=== PATIENT | female | born 1980 | race Caucasian/White ===

== ENCOUNTER → 2016-05-26 | Outpatient (CLI) | payer BC, OTHER ==
[~2016-05-26] MED LIST: PRENTAB26 PO
== END | disposition home or self-care (01) ==
LOC: C.LABSPEC 12:04
PROVIDERS: ATTEND Obstetrics & Gynecology
DX: Z34.83 Encounter for supervision of other normal pregnancy, third trimester (principal)

== ENCOUNTER 2016-06-15 18:24 | Inpatient (IN) | payer BC ==
[~2016-06-15] VITALS: Ht 172.7 cm; Wt 80.5 kg
[2016-06-15] MEDS ORDERED: LACTATED RINGER'S 1000ML 1,000 ML IV PRN (18:45)
[2016-06-15] MEDS ORDERED: LACTATED RINGER'S 1000ML 1,000 ML IV SCH (18:45)
[2016-06-15] MEDS ORDERED: FENTANYL 2MCG/ML ROPIV 1.25MG/ML 100ML BAG EPI ONE (19:03)
[2016-06-15] MEDS ORDERED: EpHEDrine SULFATE INJ 50 MG/ML AMP ONE (19:03)
[2016-06-15] MEDS ORDERED: BUPIVACAINE 0.25% 30 ML VIAL ONE (19:03)
[2016-06-15] MEDS ORDERED: FENTANYL CITRATE INJ 50 MCG/1 ML 2 ML VIAL ONE (19:04)
[2016-06-15 19:21] LABS: HEMATOCRIT 35.1 % (37-47); MEAN CELL VOLUME 85.8 fL (80-100); MEAN CORPUSCULAR HEMOGLOBIN 29.6 pg (25-34); MEAN CORPUSCULAR HGB CONC 34.5 g/dl (32-36); MEAN PLATELET VOLUME 9.8 fL (7.4-10.4); PLATELET COUNT 212 K/uL (130-400); RED BLOOD COUNT 4.09 M/uL (4.2-5.4); WHITE BLOOD COUNT 8.28 K/uL (4.8-10.8)
[2016-06-15] MEDS ORDERED: PRENTAB26 PO (19:30)
[2016-06-15 19:31] VITALS: Ht 172.7 cm; Wt 80.5 kg
[2016-06-15] MEDS ORDERED: OXYTOCIN 30 UNITS/500ML NSS IV ONE (19:44)
[2016-06-15] MEDS ORDERED: OXYTOCIN 30 UNITS/500ML NSS IV PRN (20:15)
[2016-06-15] MEDS ORDERED: SUPERCREAM 0.870 % 15GM JAR EXT PRN (20:15)
[2016-06-15] MEDS ORDERED: ACETAMINOPHEN/CODEINE 300/30MG TAB PO PRN ×2 (20:15)
[2016-06-15] MEDS ORDERED: ACETAMINOPHEN 325 MG TAB PO PRN (20:15)
[2016-06-15] MEDS ORDERED: LANOLIN OINT EXT PRN ×2 (20:15)
[2016-06-15] MEDS ORDERED: BENZOCAINE 20% AER SPR 82.5 GM CAN EXT PRN (20:15)
[2016-06-15] MEDS: IBUPROFEN 600 MG TAB PO PRN (20:39)
[2016-06-16 00:20] VITALS: BP 116/75; PULSE 90; TEMP 36.8
--- NOTE | 2016-06-16 01:17 | DELIVERY SUMMARY ---
DATE OF OPERATION: 06/15/2016 The patient is a 35-year-old 2, para 1-0-0-1 white female EDC of 06/22/2016, who presented in active labor following ruptured membranes. She was 4 cm upon arrival to labor and delivery and rapidly went to full dilation and delivered a viable female over intact perineum over 1 contraction. Mouth and nasopharynx were suctioned on the perineum. The rest of the infant delivered with ease and was placed on the mother's abdomen. There was vigorous crying and the was moving all 4 limbs. The cord was clamped and cut. Cord blood was obtained and the placenta was expressed intact with a 3-vessel cord. A second degree perineal laceration was repaired using 3-0 chromic in the usual fashion. 1% lidocaine was used to anesthetize the area prior to doing the repair. Estimated blood loss was 300 mL. Mother and doing well after delivery. I attest to the content of the Intraoperative Record and any orders documented therein. Any exceptio ns are noted below.
[2016-06-16] MEDS: IBUPROFEN 600 MG TAB PO PRN ×3 (02:34→16:21)
[2016-06-16 03:35] VITALS: BP 121/68; PULSE 88; TEMP 37
--- NOTE | 2016-06-16 07:09 | Progress Note ---
Subjective Jun 16, 2016. Subjective conversation w/ patient, physical exam Ambulation: ambulating normally Voiding: no voiding problems Passing Gas: No Diet Tolerance: Regular Diet Lochia: Moderate Feeding Type: Breast Feeding Pain: No pain reported this morning Review of Systems Constitutional: No chills, No fever Respiratory: No cough, No shortness of breath Cardiac: No chest pain Breast: No breast pain Abdomen: No nausea, No pain, No vomiting Female : No dysuria Objective Vital Signs Date Time Temp Pulse Resp B/P Pulse Ox O2 Delivery O2 Flow Rate FiO2 06/16/16 03:35 37.0 88 20 121/68 Room Air 06/16/16 00:20 Room Air 06/16/16 00:20 36.8 90 20 116/75 Room Air Physical Exam General Appearance: WELL-APPEARING, WD/WN, NO APPARENT DISTRESS Respiratory/Chest: lungs clear, normal breath sounds Cardiovascular: regular rate, rhythm, no gallop, no murmur Abdomen: non tender, soft Fundus: Firm, Relation to Umbilicus (2cm below umbilicus) Extremities: no calf tenderness Laboratory Results Last 24 Hours Test 06/15/16 19:12 06/16/16 04:44 White Blood Count 8.28 K/uL Red Blood Count 4.09 M/uL Hemoglobin 12.1 g/dL Hematocrit 35.1 % Mean Corpuscular Volume 85.8 fL Mean Corpuscular Hemoglobin 29.6 pg Mean Corpuscular Hemoglobin Concent 34.5 g/dl RDW Standard Deviation 43.9 fL RDW Coefficient of Variation 14.1 % Platelet Count 212 K/uL Mean Platelet Volume 9.8 fL Medications Current Inpatient Medications Medications (Trade) Dose Ordered Sig/Tommy Route Start Time Stop Time Status Last Admin Dose Admin Lactated Ringer's 1,000 ml @ 125 mls/hr Q8H IV 06/15/16 18:45 06/17/16 18:44 Lactated Ringer's (Lr 1000ml) 1,000 ml @ 999 mls/hr Q1H1M PRN IV 06/15/16 18:45 07/15/16 18:44 06/15/16 19:00 999 MLS/HR Oxytocin (Pitocin IV) 30 units UD PRN IV 06/15/16 20:15 07/15/16 20:14 Benzocaine (Dermoplast Aero Spr) 1 appln PRN PRN EXT 06/15/16 20:15 07/15/16 20:14 Cocaine HCl (Supercream 0.870% Cr) BID PRN EXT 06/15/16 20:15 06/29/16 20:14 Lanolin (Lanolin Oint) PRN PRN EXT 06/15/16 20:15 07/15/16 20:14 Prenat Multivit/ Internet Sales Manager/Iron/Folic Ac ( Vitamin Tab) 1 tab DAILY PO 06/16/16 08:00 07/16/16 07:59 Ibuprofen (Motrin Tab) 600 mg Q4H PRN PO 06/15/16 20:15 07/15/16 20:14 06/16/16 02:34 600 MG Acetaminophen (Tylenol Tab) 650 mg Q6H PRN PO 06/15/16 20:15 07/15/16 20:14 Acetaminophen/ Codeine Phosphate (Tylenol w/ Codeine #3 Tab) 1 tab Q4H PRN PO 06/15/16 20:15 07/15/16 20:14 Acetaminophen/ Codeine Phosphate (Tylenol w/ Codeine #3 Tab) 2 tab Q4H PRN PO 06/15/16 20:15 07/15/16 20:14 Bisacodyl (Dulcolax Tab) 5 mg 20 PO 06/16/16 20:00 06/16/16 20:01 Docusate Sodium (coLACE CAP) 100 mg BID PO 06/16/16 08:00 07/16/16 07:59 Assessment and Plan Post- Day#: 1 Continue Routine Care: Resident Physician Supervision Note: I interviewed and examined the patient. Discussed with Dr. Harrison and agree with findings and plan as documented in the note. Any exceptions or clarifications are listed here: [None] Documented By: Kayla Barney - Vital Signs reviewed and WNL (temp max 37.0) - Blood Type: A+, GBS Negative, Rubella Immune - Encourage Ambulation today - Tolerating PO Diet - Pain well controlled this morning
[2016-06-16 07:40] VITALS: BP 118/79; PULSE 76; TEMP 36.5; O2SAT 96
[2016-06-16 08:00] LABS: HEMATOCRIT 34.1 % (37-47)
[2016-06-16] MEDS: PRENATAL VITAMIN TAB PO SCH (08:24)
[2016-06-16] MEDS: DOCUSATE SODIUM 100 MG CAP PO SCH ×2 (08:24→19:51)
[2016-06-16 12:01] VITALS: BP 113/73; PULSE 80; TEMP 36.6; O2SAT 96
[2016-06-16 16:15] VITALS: BP 111/76; PULSE 96; TEMP 36.5; O2SAT 98
[2016-06-16 20:00] VITALS: BP 111/70; PULSE 90; TEMP 36.5; O2SAT 97
[2016-06-16] MEDS ORDERED: BISACODYL 5 MG TABEC PO SCH (20:00)
[2016-06-17] VITALS: BP 107/63; PULSE 83; TEMP 36.8
[2016-06-17] MEDS: IBUPROFEN 600 MG TAB PO PRN (04:44)
--- NOTE | 2016-06-17 07:02 | Progress Note ---
Subjective Jun 17, 2016. Subjective conversation w/ patient, physical exam Ambulation: ambulating normally Voiding: no voiding problems Passing Gas: No Diet Tolerance: Regular Diet Lochia: Moderate Feeding Type: Breast Feeding Pain: No pain reported this morning Review of Systems Constitutional: No chills, No fever Respiratory: No cough, No shortness of breath Cardiac: No chest pain Breast: No breast pain Abdomen: No nausea, No pain, No vomiting Female : No dysuria Objective Vital Signs Date Time Temp Pulse Resp B/P Pulse Ox O2 Delivery O2 Flow Rate FiO2 06/17/16 00:00 36.8 83 16 107/63 Room Air 06/17/16 00:00 Room Air 06/16/16 20:00 36.5 90 18 111/70 97 Room Air 06/16/16 16:15 36.5 96 16 111/76 98 Room Air 06/16/16 16:15 98 Room Air 06/16/16 12:01 36.6 80 16 113/73 96 Room Air 06/16/16 07:40 Room Air 06/16/16 07:40 36.5 76 16 118/79 96 Room Air Physical Exam General Appearance: WELL-APPEARING, WD/WN, NO APPARENT DISTRESS Respiratory/Chest: lungs clear, normal breath sounds Cardiovascular: regular rate, rhythm, no gallop, no murmur Abdomen: non tender, soft Fundus: Firm, Relation to Umbilicus (1cm below umbilicus) Extremities: no calf tenderness Laboratory Results Last 24 Hours Test 06/16/16 07:35 Hemoglobin 11.8 g/dL Hematocrit 34.1 % Medications Current Inpatient Medications Medications (Trade) Dose Ordered Sig/Tommy Route Start Time Stop Time Status Last Admin Dose Admin Lactated Ringer's 1,000 ml @ 125 mls/hr Q8H IV 06/15/16 18:45 06/17/16 18:44 Lactated Ringer's (Lr 1000ml) 1,000 ml @ 999 mls/hr Q1H1M PRN IV 06/15/16 18:45 07/15/16 18:44 06/15/16 19:00 999 MLS/HR Oxytocin (Pitocin IV) 30 units UD PRN IV 06/15/16 20:15 07/15/16 20:14 Benzocaine (Dermoplast Aero Spr) 1 appln PRN PRN EXT 06/15/16 20:15 07/15/16 20:14 Cocaine HCl (Supercream 0.870% Cr) BID PRN EXT 06/15/16 20:15 06/29/16 20:14 Lanolin (Lanolin Oint) PRN PRN EXT 06/15/16 20:15 07/15/16 20:14 Prenat Multivit/ Health Practice Manager/Iron/Folic Ac ( Vitamin Tab) 1 tab DAILY PO 06/16/16 08:00 07/16/16 07:59 06/16/16 08:24 1 TAB Ibuprofen (Motrin Tab) 600 mg Q4H PRN PO 06/15/16 20:15 07/15/16 20:14 06/17/16 04:44 600 MG Acetaminophen (Tylenol Tab) 650 mg Q6H PRN PO 06/15/16 20:15 07/15/16 20:14 Acetaminophen/ Codeine Phosphate (Tylenol w/ Codeine #3 Tab) 1 tab Q4H PRN PO 06/15/16 20:15 07/15/16 20:14 Acetaminophen/ Codeine Phosphate (Tylenol w/ Codeine #3 Tab) 2 tab Q4H PRN PO 06/15/16 20:15 07/15/16 20:14 Docusate Sodium (coLACE CAP) 100 mg BID PO 06/16/16 08:00 07/16/16 07:59 06/16/16 19:51 100 MG Assessment and Plan Post- Day#: 2 Continue Routine Care: -Vital Signs reviewed and WNL (temp max 36.8) - Blood Type: A+, GBS Negative, Rubella Immune - Encourage Ambulation today - Tolerating PO Diet - Pain well controlled - Discharge today Resident Physician Supervision Note: I interviewed and examined the patient. Discussed with Dr. Harrison and agree with findings and plan as documented in the note. Any exceptions or clarifications are listed here: [None] Documented By: Dakota Reyna
--- NOTE | 2016-06-17 07:11 | Discharge Instructions ---
Discharge Instructions Admission Reason for Admission: R/O Rupture Discharge Discharge Diagnosis / Problem: Vaginal Delivery Discharge Goals Goal(s): Routine recovery after delivery Medications Continue Dispensed Medications: supercream, dermaplast, tucks, lansinoh Activity Recommendations Activity Limitations: per Instructions/Follow-up section . Instructions / Follow-Up Instructions / Follow-Up ACTIVITY RECOMMENDATIONS: * Gradual return to full activity over the next 2-3 weeks. * No lifting - nothing heavier than baby over the next 2-3 weeks. * Do not engage in vigorous exercise, sexual activity or sports until cleared by your physician. * Do not drive or operate any motorized equipment until cleared by your physician. * You may shower/bathe daily. MEDICATIONS: For discomfort or pain, you may use Acetaminophen (Tylenol), Ibuprofen (Advil), or Naproxen (Aleve) following the package directions. For constipation you may use Colace following the package directions. BREAST CARE: If you are not breast feeding: * Wear a supportive bra 24 hours a day for one to two weeks. * Avoid stimulating your breasts and nipples as much as possible during the first few weeks after delivery. * When taking a shower, have the warm water hit your back, not breasts. * When your breasts feel full, apply ice packs. Usually three to four times a day helps ease the discomfort. * Take a mild pain medication (Tylenol / Motrin) when you are uncomfortable. If breast feeding: * Use breast milk to lubricate nipples. Lansinoh cream may be used for sore nipples. You do not need to remove cream prior to breast feeding. If using a different brand of cream, check the label for directions regarding removal of cream prior to nursing. * Wear a supportive bra. * If having problems with breasts or breast feeding, call a inside sales consultant or your health care provider. EPISIOTOMY CARE: After delivery, if you have an episiotomy (stitches), the following steps will ease discomfort and aid healing. * For the first 24 hours after delivery, place ice packs next to your episiotomy to help reduce swelling. * After the first 24 hour-period, sitz baths, either portable or in the tub, are suggested. A shower with a shower arm sprayed over the episiotomy may be comforting. * Dottie care should be done after each voiding and bowel movement. Squirt warm water from a plastic bottle over the perineum (region of the body between the anus and urinary opening) and pat dry. * Use Dermoplast to ease discomfort. Shake container. Ryde directly over the episiotomy. Place a Tucks on a clean sanitary pad next to your episiotomy. SPECIAL CARE INSTRUCTIONS: When you are discharged from the hospital, it is important for you to follow the instructions listed below: * During the first week at home, you should be able to care for yourself and your baby. In addition, the usual light household activities are encouraged. * Limit your activities to the way you feel. Do not try to clean the house or move furniture. Be sensible. * If you actively engage in sports and have done so up until the time of your delivery, you may resume these activities as soon as you feel able. This may take up to one month or even longer. Use good judgment. * Continue to take your vitamins for at least six weeks after the of your baby. * Your diet need not be limited unless you were on a special diet before your delivery. Breast-feeding mothers need around 2500 calories per day and at least 64-80 ounces of fluid per day (8 to 10 glasses). * You should eat foods from the four major food groups. Crash diets or fad diets are to be avoided. Eating lean meats, fresh fruits and vegetables, low-fat dairy products, high fiber foods and a regular exercise program, will help you get back to your pre- weight without putting your health at risk. * Constipation is sometimes a problem after delivery. Take a mild laxative as needed. If breast feeding, Milk of Magnesia is acceptable to use. You may use a suppository or Fleets enema if no episiotomy. * A daily shower or tub bath is suggested. Be sure to thoroughly and gently dry the perineum. * A bloody vaginal discharge will usually continue until around four weeks post . A small amount of bleeding may continue for as long as six weeks. Vaginal discharge changes from the bright red bleeding after delivery to pink then brownish and finally yellowish-pink before becoming white and disappearing. * Bleeding may increase with activity. Your first period may come in 4-8 weeks. If you are breast feeding, your period may be delayed even longer. * [place] (sex) can begin whenever both you and your partner feel comfortable and do not have any form of genital infection. It is recommended that you wait at least six weeks for internal and external healing to occur. If you have questions, please talk to your health care practitioner. A condom should be used to prevent infection and . * Foreplay, gentle intercourse and lubrication is very important the first several times to prevent pain. A water-based lubricant such as K-Y jelly or Astroglide may be used. * If you have RH negative blood and your baby is RH positive, you will receive RHOGAM by injection prior to discharge. The nurse will give you a card to keep with you that has the date and place that you received RHOGAM after delivery. * During your care, you had a Rubella screen done to check for the presence of rubella antibodies in your blood. If your test was negative, you will receive a Rubella vaccine prior to discharge. This vaccine may cause a fever, soreness at the injection site and flu-like symptoms. If these symptoms persist, notify your health care practitioner. is not advised for one month after a Rubella vaccine. * Verbalizes understanding of car seat law as reviewed with patient nursing. * Car Seat hand-out given and reviewed with patient by nursing. * Shaken baby information reviewed with patient by nursing. Call you doctor if: * Heavy bleeding (saturating several pads an hour) or passing clots the size of your fist. * A fever >101 degrees F (38.3 degrees C) on two occasions four hours apart and /or chills. * Unusual pain in the pelvic or vaginal areas. * "Baby Blues" lasting longer than two weeks. If you have any questions or concerns, call your health care practitioner at . FOLLOW UP VISIT: * Please call the office at to schedule a 6 week examination. It is important you keep this appointment. It is important for you to make arrangements for either yearly or twice yearly check-ups thereafter. Current Hospital Diet Patient's current hospital diet: Regular OB Diet Discharge Diet Recommended Diet: Regular Diet Pending Studies Studies pending at discharge: no Medical Emergencies . Who to Call and When: Medical Emergencies: If at any time you feel your situation is an emergency, please call 911 immediately. . Non-Emergent Contact Non-Emergency issues call your: [employer] . . "Provider Documentation" section prepared by Carlos Harrison. VTE Core Measure Inpt VTE Proph given/why not?: Treatment not indicated
[2016-06-17 08:15] VITALS: BP 113/76; PULSE 85; TEMP 36.6; O2SAT 97
[2016-06-17] MEDS: DOCUSATE SODIUM 100 MG CAP PO SCH (08:15)
[2016-06-17] MEDS: PRENATAL VITAMIN TAB PO SCH (08:15)
[2016-06-17 10:34] VITALS: BP_DIAS 76; PULSE 85; TEMP 36.6
== END 2016-06-17 11:25 | disposition home or self-care (01) | DRG 775 ==
LOC: C.LD 18:24 → C.OPB 18:24 → C.LD 18:45 → C.OBG 22:23
PROVIDERS: ADMIT Obstetrics & Gynecology; ATTEND Obstetrics & Gynecology
PROC: 0KQM0ZZ Repair Perineum Muscle, Open Approach (ICD-10-PCS; principal; 2016-06-15)
PROC: 10E0XZZ Delivery of Products of Conception, External Approach (ICD-10-PCS; principal; 2016-06-15)
DX: O70.1 Second degree perineal laceration during delivery (principal); Z37.0 Single live birth; Z3A.39 39 weeks gestation of pregnancy

== ENCOUNTER → 2016-08-06 | Outpatient (CLI) | payer BC | END | disposition home or self-care (01) | LOC: C.PAPS 14:45 | PROVIDERS: ATTEND Obstetrics & Gynecology | DX: Z12.4 Encounter for screening for malignant neoplasm of cervix (principal) ==

== ENCOUNTER → 2016-08-10 | Outpatient (CLI) | payer BC ==
--- NOTE | 2016-08-10 15:43 | MAMMOGRAPHY REPORT ---
UNILATERAL LEFT DIGITAL DIAGNOSTIC MAMMOGRAM TOMOSYNTHESIS WITH CAD AND TARGETED LEFT ULTRASOUND: 08/10/2016 CLINICAL HISTORY: 35 year-old woman who is approximately 6 weeks and currently lactating presents with a three-week history of a palpable lump in the upper inner quadrant of the left breast . She reports it has not significantly changed in size since she noticed it and may be slightly mor e prominent in the evenings when her breasts are less full of milk. No skin changes or bloody nippl e discharge. TECHNIQUE: Left breast tomosynthesis in addition to standard 2D mammography was performed. Current s tudy was also evaluated with a Computer Aided Detection (CAD) system. COMPARISON: No prior exams were available for comparison. BREAST COMPOSITION: The tissue of the left breast is extremely dense, which lowers the sensitivity of mammography. FINDINGS: A triangular skin palpable marker was placed in the upper inner approximate 10:00 axis of the left breast, in the area of palpable lump pointed out by the patient. There are diffuse lactati onal changes evident mammographically, without a suspicious mass, focal area of architectural distor tion or suspicious microcalcifications. Targeted ultrasound was performed in the area of palpable lump pointed out by the patient. On palpa tion, there is a rectangular or almost wedge-shaped firm mass, approximately 1 x 2 cm. On ultrasoun d in the 10:00 left breast, 8 cm from the nipple, in the area of palpable lump pointed out by the pa tient, there is a focal area of normal tissue with lactational changes evident. A few tubular hypoe choic milk ducts are seen coursing through this area. There are not definitely measurable borders t o determine this mass but this area appears discrete in real-time scanning. It has the appearance o f normal lactational changes. No suspicious hypoechoic solid or cystic mass is identified. IMPRESSION: ACR-BI-RADS CATEGORY 3: PROBABLY BENIGN, TARGETED ULTRASOUND ACR-BI-RADS CATEGORY 3: OK OBABLY BENIGN The palpable lump in the 10:00 left breast may possibly correlate with a breast segment containing d iffuse lactational changes. There is no evidence of a suspicious sonographic mass. However, given the discrete palpable nature that I was also able to feel, continued clinical follow-up is recommend ed. Options of fine-needle aspiration based on palpation in the pathology department or close sonog raphic follow-up are provided to the patient. We will tentatively opt to follow this area closely w ith ultrasound in 1 to 2 months. These results and recommendations were discussed with the patient at the time of the exam. Approximately 10% of breast cancers are not detected with mammography. A negative mammographic repor t should not delay biopsy if a clinically suggestive mass is present. Andreea Dean M.D. ay/:08/10/2016 12:43:03 Attending Technologist: Celina De La Cruz, [facility] Orthotic Technician: Sridevi Dutton RT(R)(M), [facility] letter sent: Follow Up Recommended 3 BI-RADS Code: ACR-BI-RADS Category 3: Probably Benign Ultrasound BI-RADS: ACR-BI-RADS Category 3: P robably Benign
== END | disposition home or self-care (01) ==
LOC: C.MAMM 09:42
PROVIDERS: ATTEND Obstetrics & Gynecology
DX: O92.29 Other disorders of breast associated with pregnancy and the puerperium (principal)

== ENCOUNTER → 2016-10-11 | Outpatient (CLI) | payer BC ==
--- NOTE | 2016-10-14 07:37 | MAMMOGRAPHY REPORT ---
ULTRASOUND OF LEFT BREAST: 10/11/2016 CLINICAL HISTORY: 35 year-old woman presents for a very short 1-2 month follow-up of a palpable lump in the 10:00 left breast thought to correlate with focal prominent lactational tissue on ultrasound. She is still lactating but reports the lump is less prominent from her last appointment. No skin er ythema or bloody nipple discharge. COMPARISON: Comparison is made to exams dated: 08/10/2016 mammogram and 08/10/2016 ultrasound - [facility]. FINDINGS: Targeted ultrasound was performed in the 10:00 left breast, 8 cm from the nipple in the ar ea of previously palpable lump pointed out by the patient. There is a minimal firm nodular tissue in the area of prior palpable concern that has decreased size on patient report. Currently there is no evidence of a measurable mass. There are diffuse mild lactational changes, but no focal prominent a kaur of lactational tissue is seen as on the prior ultrasound. The decreased size on clinical exam an d resolution on ultrasound confirms benignity. No further close follow-up is needed at this time. IMPRESSION: ACR BI-RADS CATEGORY 2: BENIGN There is sonographic resolution of the possible focal segmental area of lactational change in the 10: 00 left breast, thought to correlate with the palpable lump felt by the patient. This is concordant with her reports of saying this area has decreased and is less prominent compared to the prior exam. This confirms benignity and no further close follow-up is needed at this time. These results and recommendations were discussed with the patient at the time of the exam. Andreea Dean M.D. ay/:10/11/2016 14:05:26 Produce Wrapper: Celina ARMENTA(Gerson)(Yaya), [facility] letter sent: Normal 1/2 BI-RADS Code: ACR BI-RADS Category 2: Benign
== END | disposition home or self-care (01) ==
LOC: C.MAMM 13:42
PROVIDERS: ATTEND Obstetrics & Gynecology
DX: N63 Unspecified lump in breast (principal)